=== PATIENT | female | born 1955 | race Caucasian/White ===

== ENCOUNTER → 2021-08-02 10:33 | Outpatient (CLI) | payer MEDICARE, SELFPAY ==
--- NOTE | 2021-08-02 10:35 | CA_ITS ---
APPROVED REPORT EXAM: Comprehensive 2D, Doppler, and color-flow Echocardiogram Snailer: Margarita Gaona RT(R) Ht: 5 ft 1 in Wt: 179lbs BSA: 1.80 BP: 160/59 mmHg Indications: COPD, ex smoker, HTN, SOB, hyperlipidemia, CHF, AFIB, pulm vein ablation 2D Dimensions LVOT 1.96 cm (M/F) 1.5-2.5 LA Volume 49.50 mL LA Volume Index 27.50 mL/m2 (M/F) 16-34 M-Mode Dimensions RVDd 2.15 cm (0.9-2.6) LA Diam 4.00 cm (1.9-4.0) LVDd 4.71 cm (3.5-5.7) Ao Diam 2.42 cm (2.0-3.7) LVDs 3.41 cm (3.5-5.7) IVSd 0.85 cm (0.6-1.1) PWd 0.71 cm (0.6-1.1) EF (Teich) 53.50% FS 27.60% EDV (Teich) 102.90 mL ESV (Teich) 47.80 mL LV Diastology E Decel Time 197.00 (160-240 msec) E/A Ratio 1.7 MED E' 8.80 (< 7 cm/sec) E'/MED E' Ratio 7.70 (>14) LAT E' 12.50 (<10 cm/sec) E/LAT E' Ratio 5.42 (>14) Mitral Valve MV E Max Joon. 68.00 (40-130 cm/s) MV A Velocity 40.00 (40-130 cm/s) E/A Ratio 1.71 MV Decel. Time 197.00 (160-240 ms) MV PHT 58.00 ms Left Ventricle Left atrium is mildly enlarged, left ventricle is normal size, mild concentric left ventricular hypertrophy, visually estimated ejection fraction 55% with no regional wall motion abnormality, diastolic parameters are within normal range. Right Ventricle Right atrium and right ventricle are normal size and contractility. Aortic Valve Aortic valve is minimally thickened and fibrosed, there is no aortic stenosis or aortic insufficiency. Mitral Valve Mitral valve grossly normal, there is trace mitral regurgitation. Tricuspid Valve Tricuspid grossly normal, there is trace tricuspid regurgitation, tricuspid regurgitation jet velocity is inadequate for calculation of the right ventricular systolic pressure. Pulmonic Valve Pulmonic valve is poorly visualized. Great Vessels Aortic root is normal size. Inferior vena cava is normal size with normal inspiratory collapse. Pericardium No significant pericardial effusion noted. Conclusion 1. Mildly enlarged left atrium, normal left ventricular size, visually estimated ejection fraction 55% with no regional wall motion abnormality, diastolic parameters are within normal range. 2. Trace mitral and tricuspid regurgitation. 3. No significant pericardial effusion noted. Electronically signed by : Bob Juan MD 08/03/2021 13:26:51
== END ==
PROVIDERS: PCP Family Medicine; Visit Provider Urology
DX: I11.0 Hypertensive heart disease with heart failure (principal); I48.0 Paroxysmal atrial fibrillation; I50.9 Heart failure, unspecified; R06.00 Dyspnea, unspecified
CPT/HCPCS: 93306

== ENCOUNTER → 2022-08-14 10:02 | Outpatient (CLI) | payer MEDICARE, SELFPAY ==
[2022-08-14 11:26] LABS: Anion Gap 14.4 mEq/L (5-15); Blood Urea Nitrogen 21 mg/dl (7-17); Calcium 9.9 mg/dl (8.4-10.2); Carbon Dioxide 32 mmol/L (22.0-30.0); Chloride 88 mmol/L (98-107); Estimated Glomerular Filt Rate 72 ml/min (>60); GFR (African American) 87 ML/MIN (>60); Glucose 88 mg/dl (74-100); Potassium 5.4 mmoL/L (3.5-5.1); Sodium 129 mmol/L (136-145)
== END ==
PROVIDERS: Visit Provider Nurse Practitioner Family
DX: E87.5 Hyperkalemia (principal)
CPT/HCPCS: 36415; 80048

== ENCOUNTER → 2022-11-14 11:41 | Outpatient (CLI) | payer MEDICARE, SELFPAY ==
[2022-11-14 12:42] LABS: Blood Urea Nitrogen 14 mg/dl (7-17); Calcium 9.5 mg/dl (8.4-10.2); Carbon Dioxide 27 mmol/L (22.0-30.0); Chloride 94 mmol/L (98-107); Estimated Glomerular Filt Rate 72 ml/min (>60); GFR (African American) 87 ML/MIN (>60); Glucose 90 mg/dl (74-100); Sodium 130 mmol/L (136-145)
== END ==
PROVIDERS: PCP Family Medicine; Visit Provider Nurse Practitioner
DX: E87.5 Hyperkalemia (principal)
CPT/HCPCS: 36415; 80048

== ENCOUNTER → 2023-11-04 09:35 | Outpatient (CLI) | payer MEDICARE, SELFPAY | LOC: RT 09:37 | PROVIDERS: Visit Provider Physician Assistant | DX: I48.0 Paroxysmal atrial fibrillation (principal); R00.2 Palpitations | CPT/HCPCS: 93225 ==

== ENCOUNTER → 2023-11-06 09:33 | Outpatient (CLI) | payer MEDICARE, SELFPAY | LOC: RT 09:35 | PROVIDERS: Visit Provider Physician Assistant | DX: I48.0 Paroxysmal atrial fibrillation (principal); R00.2 Palpitations | CPT/HCPCS: 93270 ==

== ENCOUNTER 2024-12-08 08:56 | Outpatient (CLI) | payer MEDICARE, SELFPAY ==
--- NOTE | 2024-12-08 09:01 | CT_ITS ---
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 A noncontrast coronary calcium scan was performed. A CT attenuation threshold of 130 Hounsfield units (HU) was used for the detection of calcium in contiguous voxels of 1 sq mm in area to be counted as individual lesions. Bolus tracking in the ascending aorta with a threshold of 180 HU was performed. Immediately afterwards, ECG synchronized cardiac CT was then performed from the cardiac base to apex using retrospective gating with ECG tube current modulation. A total of 85 mL of Isovue 370 mg/mL contrast medium was administered at 5 mL/sec followed by a saline flush using a biphasic injection protocol. A tube voltage of 120 KVp was used. The patient received the following medications prior to the cardiac CT. 5 mg of oral metoprolol 0.8 mg of sublingual nitroglycerin The average heart rate at the time of acquisition was 60 bpm and regular. Image Reconstruction Transaxial images were reconstructed at 0.67 mm slide thickness. Data was reviewed interactively on an advanced workstation capable of 2 and 3-dimensional displays in all conventional reconstruction formats, including multiplanar reformations, maximum intensity projections, curved multiplanar reformations, and volume rendered reconstructions. When applicable, selected routine images describing the relevant coronary anatomy and pathology were saved and sent to PACS. Complications None Technical Quality Overall image quality was suboptimal due to significant motion and step artifact. Coronary artery opacification was suboptimal. Total DLP (Dose-Length Product) is 1614.4 mGy-cm. The reported value represents the total of one or more individual components during the CT acquisition of this date and at this time, and as such, the same value may appear in more than one CT report depending on the interpreting/reporting physicians. COMPARISON None FINDINGS CT Coronary Calcium Scoring LMA (Left Main Artery) = 0 LAD (Left Anterior Descending) = 0 LCX (Left Coronary Circumflex) = 0 RCA (Right Coronary Artery) = 84 Total Calcium Score = 84 using the AJ-130 method. The observed calcium score of 84 is at 74th percentile for subjects of the same age, sex, and race/ethnicity. The interpretation of the calcium heart score is based on the following continuum*: 0 = no calcified plaque detected (risk of coronary artery disease is very low ??? less than 5%) 1-10 = calcium detected in extremely minimal levels (risk of coronary diseases is still low ??? less than 10%) 11-100 = mild levels of plaque detected with certainty (mild or minimal narrowing of heart arteries is likely) 101-400 = definite,at least moderate levels of plaque detected (relatively high risk of a heart attack within 3-5 years) >401-999 = extensive levels of plaque detected (high risk of heart attack, high levels of vascular disease are present, high likelihood of at least one significant coronary narrowing) *The calcium heart score quantifies the burden of coronary calcification/plaque in the coronary arteries. The calcium heart score is not able to evaluate the presence or burden of non-calcified (i.e. soft) plaque. There is also calcification in the ascending, transverse, and descending thoracic aorta. Coronary CT Angiography The coronary arterial system is right dominant. Quantitative Stenosis Grading: Left Main (LM): The left main originates normally from the left sinus of Valsalva. The LM bifurcates into the left anterior descending artery and left circumflex artery. The LM is patent with no evidence of atherosclerosis. Left Anterior Descending (LAD) and Diagonal Branches: The LAD gives off 2 diagonal branch(es). There is significant motion in the proximal LAD segment, but grossly no obvious evidence of luminal stenosis in the LAD. There is no evidence of LAD-myocardial bridge. 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 The LCx travels extramurally in a retro-aortic benign course. The LCx gives off 1 Obtuse Marginal (OM) branch(es). The LCX and its branches are patent with no evidence of atherosclerosis. Right Coronary Artery (RCA): The RCA originates normally from the right sinus of Valsalva. The RCA gives off a posterior descending artery (PDA) and posterolateral (PL) branches. There is mixed calcified/noncalcified plaque in the proximal RCA segments with up to 50-70% luminal stenosis. Non-Coronary Cardiac Findings: Analysis of the left ventricular (LV) structure and function was performed after 3-D reconstruction of the LV from axial images, with user-corrected automatic contouring for assessment of LV volumes and user-defined reconstruction from oblique planes for measurement of 3-D cardiac structure and function. -The left ventricle systolic function is normal. -There is no left atrial appendage filling defect. Two right pulmonary veins and two left pulmonary veins drain normally into the left atrium. -No pericardial thickening or calcification. -Central and branch pulmonary arteries in the [id number] are unremarkable. -Thoracic aorta within the visualized thoracic aortic-branches in the [id number] is unremarkable. Extracardiac Structures No significant extra-cardiac findings. Note, however, that this study is focused on the cardiac findings. IMPRESSION -Image quality is suboptimal due to significant motion and step artifact, as well as suboptimal IV contrast opacification of the coronary tree. -Presence of coronary calcification with an Agatston score = 84 using the AJ-130 method. -The observed calcium score of 84 is at 74th percentile for subjects of the same age, sex, and race/ethnicity. 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 The LCx travels extramurally in a retro-aortic benign course. -Likely moderate atherosclerosis in the proximal RCA segment (50-70% luminal stenosis), with possible evidence of significant flow-limiting atherosclerosis in the corresponding segment. Of note, the proximal LAD segment is also not well-visualized due to significant motion and step artifact. -Calcification in the ascending, transverse, and descending thoracic aorta. -CAD-RADS 3. Management recommendations per ACC/AHA guidelines*, as clinically appropriate. *Recommendations: CAD RADS 0: Reassurance. Consider non-atherosclerotic causes of chest pain. CAD RADS 1: Consider non-atherosclerotic causes of chest pain. Consider preventive therapy and risk factor modification. CAD RADS 2: Consider non-atherosclerotic causes of chest pain. Consider preventive therapy and risk factor modification, particularly for patients with nonobstructive plaque in multiple segments. CAD RADS 3: Consider further functional testing. Consider symptom-guided anti-ischemic and preventive pharmacotherapy as well as risk factor modification per published guideline statements. CAD RADS 4A: Consider further functional testing or invasive coronary angiography with revascularization per published guideline statements. Consider symptom-guided anti-ischemic and preventive pharmacotherapy as well as risk factor modification per published guideline statements. CAD RADS 4B: Invasive coronary angiography recommended with revascularization per published guideline statements. Consider symptom-guided anti-ischemic and preventive pharmacotherapy as well as risk factor modification per published guideline statements. CAD RADS 5: Consider invasive angiography and/or viability assessment with revascularization per published guideline statements. Consider symptom-guided anti-ischemic and preventive pharmacotherapy as well as risk factor modification per published guideline statements. CRITICAL RESULT None COMMUNICATION Per this written report The coronary and cardiac findings of this CCTA were reviewed, reported, and signed by Herman Velazquez MD (Emergency Spill Response Technician) Conclusion Electronically signed by : Priscilla Velazquez MD 12/09/2024 11:47:17
[2024-12-08 09:21] VITALS: BMI 39.0
[2024-12-08 09:27] VITALS: BP 176/79; PULSE 59; RESP 16; TEMP 36.6; O2SAT 99
[2024-12-08 09:41] LABS: Anion Gap 10.7 mEq/L (5-15); Blood Urea Nitrogen 19 mg/dl (7-17); Calcium 9.1 mg/dl (8.4-10.2); Carbon Dioxide 30 mmol/L (22.0-30.0); Chloride 101 mmol/L (98-107); Creatinine Clearance Estimated 77 mL/min (50-200); Estimated Glomerular Filt Rate 83 ml/min (>60); GFR (African American) 101 ML/MIN (>60); Glucose 95 mg/dl (74-100); Potassium 4.7 mmoL/L (3.5-5.1); Sodium 137 mmol/L (136-145)
[2024-12-08 10:36] VITALS: BP 152/80; PULSE 58; RESP 16; O2SAT 98
[2024-12-08] MEDS: NITROGLYCERIN 0.4MG SL TABLET SL (10:36)
[2024-12-08 10:39] VITALS: BP 159/83; PULSE 59; RESP 16; O2SAT 99
[2024-12-08 10:42] VITALS: BP 122/76; PULSE 66; RESP 16; O2SAT 98
[2024-12-08 10:44] VITALS: BP 101/55; PULSE 64; RESP 16; O2SAT 98
[2024-12-08] MEDS: METOPROLOL TARTRATE 5MG/5ML VIAL 5 MG IV (10:44)
[2024-12-08] MEDS: 0.9 % SODIUM CHLORIDE 50 ML VIAL IV (10:52)
[2024-12-08] MEDS: SODIUM CHLORIDE 0.9% 10ML SYR (RAD ONLY) 10 ML IV (10:52)
[2024-12-08] MEDS: IOPAMIDOL-370 (76%);100ML BOTTLE 85 ML IV (10:52)
[2024-12-08 10:55] VITALS: BP 124/68; PULSE 66; RESP 16; O2SAT 99
== END 2024-12-08 23:59 | disposition home or self-care (01) ==
LOC: RAD 08:57
PROVIDERS: PCP Nurse Practitioner Family; Visit Provider Physician Assistant
DX: R94.31 Abnormal electrocardiogram [ECG] [EKG] (principal); R06.00 Dyspnea, unspecified; Z98.890 Other specified postprocedural states
CPT/HCPCS: 75574; 80048; 93306; Q9967

== ENCOUNTER 2024-12-24 08:43 | Day surgery (SDC) | payer MEDICARE, SELFPAY ==
[2024-12-24] VITALS (10 sets, daily range): BP systolic 92–142; BP diastolic 64–85; PULSE 54–67; RESP 16–20; O2SAT 94–96; BMI 38.0
--- NOTE | 2024-12-24 07:29 | IR_ITS ---
APPROVED REPORT Patient Location: Outpatient PROCEDURES Left heart catheterization Left ventriculogram Selective coronary angiogram INDICATION Abnormal CCTA, Angina pectoris Informed consent was obtained prior to the procedure. COMPLICATIONS NONE Estimated Blood Loss: LESS THAN 10 ML TECHNIQUE One percent lidocaine used to anesthetize the right anterior aspect of the wrist. The right radial artery was accessed via the Seldinger technique. A 6 Ivorian sheath was placed in the right radial artery. 2.5 mg of Verapamil, 800 mcg of nitroglycerin, 1mg Lidocaine and 5000 U Heparin were given through the arterial sheath. The 6 Ivorian JL 3 guide catheter was also used to perform left heart catheterization, left ventriculogram and selective coronary angiogram. At the end of the procedure the sheath was removed good hemostasis was achieved using Traclet band, patient was transferred to the postop holding area in stable condition. ANGIOGRAPHIC RESULTS The left main artery Normal The left anterior descending artery Has mild proximal 10% and mid vessel 10% luminal regularities. 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 The nondominant small anomalous circumflex artery is not of clinical significance. 2. Risk factor modification 3. Treatment of elevated LVEDP which may be contributing to patient's angina Electronically signed by : Art Vaz MD 12/24/2024 12:02:32
[2024-12-24 09:12] LABS: Basophils % 0.4 % (0.1-2.0); Eosinophils # 0.1 K/mm3 (0.0-0.4); Eosinophils % 1.7 % (0.1-12.0); Hematocrit 37.7 % (37.0-47.0); Hemoglobin 12.2 g/dL (12.2-16.2); Lymphocytes # 2.2 K/mm3 (0.7-4.5); Lymphocytes % 30.5 % (10-50); Mean Corpuscular HGB Conc 32.4 g/dL (31.8-35.4); Mean Corpuscular Hemoglobin 29.6 pg (27.0-31.2); Mean Corpuscular Volume 91.5 fl (81-99); Mean Platelet Volume 10.5 fl (7.4-10.4); Monocytes # 0.6 K/mm3 (0.1-1.0); Monocytes % 7.6 % (1.7-9.3); Neutrophils # 4.3 K/mm3 (1.8-7.8); Neutrophils % 58.8 % (37.0-80.0); Platelet Count 203 K/mm3 (142-424); Red Blood Count 4.12 M/mm3 (4.20-5.40); Red Cell Distribution Width 12.7 % (11.5-17.5); White Blood Count 7.3 K/mm3 (4.8-10.8)
[2024-12-24 09:24] LABS: Chloride 102 mmol/L (98-107); Potassium 4.7 mmoL/L (3.5-5.1); Sodium 139 mmol/L (136-145)
[2024-12-24 09:27] LABS: Anion Gap 11.7 mEq/L (5-15); Blood Urea Nitrogen 24 mg/dl (7-17); Calcium 9.4 mg/dl (8.4-10.2); Carbon Dioxide 30 mmol/L (22.0-30.0); Creatinine Clearance Estimated 77 mL/min (50-200); Estimated Glomerular Filt Rate 83 ml/min (>60); GFR (African American) 101 ML/MIN (>60); Glucose 106 mg/dl (74-100)
[2024-12-24] MEDS: diphenhydrAMINE 50MG/ML VIAL 50 MG IV (11:18)
[2024-12-24] MEDS: LIDOCAINE 1% 10ML MDV 20 ML IJ (11:18)
[2024-12-24] MEDS: VERAPAMIL 2.5MG/ML 2ML VIAL 2.5 MG IV (11:18)
[2024-12-24] MEDS: HEPARIN 1,000 UNITS/500ML NS (CATH LAB) 3000 UNIT IV (11:19)
[2024-12-24] MEDS: 0.9 % SODIUM CHLORIDE 500 ML 25 ML IV (11:19)
[2024-12-24] MEDS: NITROGLYCERIN 800MCG/8ML SYR (CATH LAB) 800 MCG IA (11:19)
[2024-12-24] MEDS: MIDAZOLAM HCL 1MG/ML 5ML VIAL 1 MG IV (11:45)
[2024-12-24] MEDS: IOPAMIDOL-370 (76%);100ML BOTTLE 50 ML IV (12:46)
== END 2024-12-24 14:07 | disposition home or self-care (01) ==
PROVIDERS: PCP Nurse Practitioner Family; Visit Provider Internal Medicine
DX: I25.10 Atherosclerotic heart disease of native coronary artery without angina pectoris (principal); I11.0 Hypertensive heart disease with heart failure; I48.0 Paroxysmal atrial fibrillation; J44.9 Chronic obstructive pulmonary disease, unspecified; I45.10 Unspecified right bundle-branch block; I50.9 Heart failure, unspecified; R93.1 Abnormal findings on diagnostic imaging of heart and coronary circulation; R06.00 Dyspnea, unspecified; Z79.899 Other long term (current) drug therapy
CPT/HCPCS: 80048; 85025; 93458; 99152; C1725; C1769; J1200; J1644; J2250; Q9967

== ENCOUNTER 2025-04-06 14:08 | Outpatient (CLI) | payer MEDICARE, SELFPAY ==
--- NOTE | 2025-04-06 14:30 | CT_ITS ---
FINAL REPORT CLINICAL HISTORY: lung cancer screening FORMER SMOKER QUIT 12 YEARS AGO, 1.5PPD X48 YEARS COMPARISON: None FINDINGS: CT CHEST LOW DOSE SCREENING HISTORY: Screening exam for lung cancer. 69-year-old female, former smoker for 12 years, 28-xamy-adkn history DOSE: CTDI vol: 2.9 mGy, DLP: 77.08 mGy*cm TECHNIQUE: Axial CT without IV contrast administration using low dose protocol. This study was performed with techniques to keep radiation doses as low as reasonably achievable, (ALARA). Individualized dose reduction techniques using automated exposure control or adjustment of mA and/or kV according to the patient's size were employed. No acute lung disease is present. There is an oval 4 mm left upper lobe nodule along the upper portion of the major fissure, best seen on image #98 of series 2. This most likely represents a perifissural node. Scattered calcified granulomas are noted as well. No other nodules or masses are identified. No pleural or pericardial effusion is seen. No adenopathy or mass lesion is present. IMPRESSION: Oval left upper lobe nodule as described, most likely a perifissural node. LUNG RADS CATEGORY 2 RECOMMENDATION: 12 month LDCT follow up Reviewed, Interpreted and Dictated by Heather Mcdonald MD Transcribed by Danisha Tran Authenticated and [facility]
[2025-04-06 15:40] VITALS: PULSE 67; PULSE 70
[2025-04-06] MEDS: ALBUTEROL 0.083% 2.5 MG/3 ML NEB IH (15:40)
== END 2025-04-06 23:59 | disposition home or self-care (01) ==
LOC: RAD 14:09
PROVIDERS: PCP Nurse Practitioner Family; Visit Provider Internal Medicine Pulmonary Disease
DX: Z12.2 Encounter for screening for malignant neoplasm of respiratory organs (principal); R91.8 Other nonspecific abnormal finding of lung field; J84.10 Pulmonary fibrosis, unspecified; Z87.891 Personal history of nicotine dependence; R06.09 Other forms of dyspnea
CPT/HCPCS: 71271; 94060; 94618; 94640; 94726; 94729

== ENCOUNTER 2025-07-28 14:31 | Outpatient (CLI) | payer MEDICARE, SELFPAY ==
--- OUTSIDE RECORDS SUMMARY | 2025-07-28 14:54 | XMS_ITS | Clinical Summary ---
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 Name Role Phone Delaney GILLESPIE Roman Unavailable [phone] Conditions or Problems Problem Name Problem Code Onset Date Status Entry Date Provider Comment Standard Description Annotate BACK PAIN, LOW 444363038 (SNOMED CT) Active Danika Lebron Low back pain Medications Medication Instructions Start Date Stop Date Generic Name [facility] Provider OLANZAPINE 15 MG TABS olanzapine 78753609524 Danika Lebron DIVALPROEX SODIUM 500 MG TBEC divalproex 95733818427 Danika Lebron MELATONIN 3 MG TABS Take two (2) tablets by mouth at bedtime melatonin 88118386181 Danika Lebron CARVEDILOL 12.5 MG TABS carvedilol 01808266274 Danika Lebron BENZTROPINE MESYLATE 0.5 MG TABS benztropine 55642947468 Danika Lebron CARVEDILOL 6.25 MG TABS carvedilol 24214378456 Danika Lebron LORATADINE-D 12HR 5-120 MG [id number] TAKE ONE TABLET BY MOUTH TWICE DAILY NEEDED loratadine-pseudoep hedrine 91757911816 Danika Lebron DIVALPROEX SODIUM ER 250 MG [id number] divalproex 13117767369 Rena Lebron HYDROXYZINE PAMOATE 25 MG CAPS hydroxyzine pamoate 32444679320 Chri sol Lebron METHYLPREDNISOLONE 4 MG TBPK methylprednisolone 67919268373 Ghassan Lebron HYDROCHLOROTHIAZIDE 25 MG TABS hydrochlorothiazide 99564832107 Chrjuliano Lebron LEVOTHYROXINE SODIUM 50 MCG TABS levothyroxine 59738545607 Danika Lebron ANASTROZOLE 1 MG TABS anastrozole 80385457445 Danika Lebron LOVASTATIN 40 MG TABS lovastatin 74057418337 Danika Lebron SERTRALINE HCL 50 MG TABS sertraline 07234669855 Danika Lebron LISINOPRIL 40 MG TABS lisinopril 28930261057 Danika Lebron Medications Administered No information available. Allergies, Adverse Reactions, Alerts Allergy Name Reaction Description Start Date Severity Statu s Provider CODEINE Critical Danika Bernardino Results No information available. Plan of Care Type Date Detail Pending order X-Ray Lumbar AP Lateral & Flexion/Extension Procedures No information available. Vital Signs Date Name Value Unit Description BMI (Body Mass Index) 35.33 kg/m2 Bod y Mass Index (Ratio) Height 61 [in_us] height E&M Weight Measured 187 [lb_av] weight E& M Weight Measured 187 [lb_av] weight E& M Immunizations No information available. Advance Directives No information available.
--- OUTSIDE RECORDS SUMMARY | 2025-07-28 14:54 | XMS_ITS ---
Author Name Interface, [id number] lity Address [address] [place], [place] [id number] Organization [facility] Address [address] [place], [place] [id number] Allergies and Adverse Reactions Medication/Group Name Reaction Severity Date No known allergies Plan Date Type Value 09/07/2019 APPOINTMENT 3 mo fu 09/07/2019 APPOINTMENT 3 mo fu Reason for Visit 3 mo fu Encounters Date Name 09/07/2019 Breast cancer, femal e Medications Date Name Route Dose Frequency Instructions Start Date End Date Status Fill Status Indication 02/09 Carvedi lol Oral orally 6.25 mg 2 times per day must administer with a meal/food active 02/09 Lovasta tin Oral orally 40.0 mg daily active 02/09 Divalpr oex Oral Delayed Release orally 250.0 mg 1 at bedtime active 02/09 Divalpr oex Oral Delayed Release orally 500.0 mg 2 tabs in morning active 02/09 Psylliu m Oral active 02/09 Choleca lcifero l Oral orally 2000.0 unit every day active 02/09 Probiot ics Oral orally 1.0 every day active 02/09 Levothy roxine Oral orally 50.0 mcg daily active 02/09 Olanzap ine Oral orally 15.0 mg every day at bedtime active 02/09 Lisinop ril Oral orally 40.0 mg daily active 06/08 Naproxe n Sodium Oral orally 220.0 mg every 8 hours prn pain active 02/09 Aspirin Oral orally 81.0 mg twice daily active 02/09 Sertral ine Oral orally 50.0 mg daily active 06/08 anastro zole 1 MG Oral Tablet orally 1.0 tablet daily 2018 active Breast cancer, female 04/27 anastro zole 1 MG Oral Tablet orally 1.0 tablet daily 2018 active Breast cancer, female Problems Diagnosis Status Date of Diagnosis Resolution Date Hot flashes Active 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
--- OUTSIDE RECORDS SUMMARY | 2025-07-28 14:54 | XMS_ITS ---
Author Name Interface, [id number] lity Address [address] [place] [address] Organization [facility] Address [address] [place] [address] Allergies and Adverse Reactions Medication/Group Name Reaction Severity Date No known allergies Plan Date Type Value 09/07/2019 APPOINTMENT 3 mo fu 09/07/2019 APPOINTMENT 3 mo fu 06/08/2019 APPOINTMENT 6 Wk SHAMIKA 06/08/2019 APPOINTMENT 6 Wk SHAMIKA Reason for Visit 3 mo fu Encounters Date Name 06/08/2019 Breast cancer, femal e 06/08/2019 Estrogen receptor po sitive status [ER+] 06/08/2019 Hot flashes 06/08/2019 Personal history of lumpectomy Diagnostic Results Date Type Test Units Lower Limit Upper Limit Result Flag Comments Status Ordered By Specimen Source Lab Address 08/31 Lab Repor t See zigzag elastic attacher d 08/31 Lab Repor t See zigzag elastic attacher d Medications Date Name Route Dose Frequency Instructions [...] smoker Active Vital Signs Date Type Value 06/08/2019 Body Temperature 98.00 06/08/2019 Heart Beat 72.00 06/08/2019 BSA 1.97 06/08/2019 BMI 37.54 06/08/2019 Height 61.00 06/08/2019 Weight 198.70 06/08/2019 Pain Scale 0.00 06/08/2019 Intravascular Systolic 112 06/08/2019 Intravascular Diastolic 62 06/08/2019 Respiratory Rate 14.00 09/07/2019 Body Temperature 98.10 09/07/2019 BMI 36.83 09/07/2019 Height 61.00 09/07/2019 Weight 194.90 09/07/2019 BSA 1.95 09/07/2019 Intravascular Systolic 138 09/07/2019 Intravascular Diastolic 70 09/07/2019 Respiratory Rate 14.00 09/07/2019 Heart Beat 72.00 09/07/2019 Pain Scale 0.00
--- OUTSIDE RECORDS SUMMARY | 2025-07-28 14:54 | XMS_ITS | CCD ---
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 Role Phone Matthew GILLESPIE, Jacobo Stroud Unavailable Unavailable Allergies and Adverse Reactions Medication/Group Name Reaction Severity Date No known allergies Reason for Visit 3 mo fu Functional Status Date Name/Question Score/Answer 09/07/2019 ECOG performance status - grade 1 1 06/08/2019 ECOG performance status - grade 0 0 04/27/2019 ECOG performance status - grade 0 0 03/16/2019 ECOG performance status - grade 0 0 02/09/2019 ECOG performance status - grade 0 0 Medications Date Name Route Dose Frequency Instructions Start Date End Date Status Fill Status Indication 02/09 Lisinopri l Oral orally 40.0 mg daily active 02/09 Probiotic s Oral orally 1.0 every day active 02/09 Divalproe x Oral Delayed Release orally 500.0 mg 2 tabs in morning active 02/09 Psyllium Oral active 02/09 Olanzapin e Oral orally 15.0 mg every day at bedtime active 02/09 Aspirin Oral orally 81.0 mg twice daily active 06/08 Naproxen Sodium Oral orally 220.0 mg every 8 hours prn pain active 02/09 Lovastati n Oral orally 40.0 mg daily active 02/09 Sertralin e Oral orally 50.0 mg daily active 02/09 Cholecalc iferol Oral orally 2000. 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
== END 2025-07-28 23:59 | disposition home or self-care (01) ==
LOC: RT 14:32
PROVIDERS: PCP Nurse Practitioner Family; Visit Provider Internal Medicine Pulmonary Disease
DX: R06.00 Dyspnea, unspecified (principal)